=== PATIENT | male | born 1975 | race Caucasian/White ===

== ENCOUNTER 2018-06-16 14:12 | Emergency (ER) | payer BC, OTHER ==
[~2018-06-16] VITALS: Ht 185.4 cm; Wt 156.5 kg
[~2018-06-16 14:12] MED LIST: LANTUS; Z.0.PRAVASTATIN SOD4 PO; Z.0.TRILIPIX135 MG PO; Z.1.METFORMIN HCL100 PO; Z.2.LISINOPRIL-HCT1 PO
[2018-06-16] MEDS ORDERED: SODIUM CHLORIDE 0.9% 1000ML 1,000 ML IV STA (15:04)
[2018-06-16] MEDS ORDERED: ENALAPRILAT IV INJ 1.25 MG/ML VIAL IV STA (15:04)
[2018-06-16] MEDS ORDERED: ONDANSETRON HCL INJ 2 MG/ML VIAL IV ONE (16:00)
[2018-06-16] MEDS ORDERED: FAMOTIDINE 20 MG/2 ML VIAL IV ONE (16:00)
[2018-06-16] MEDS ORDERED: MORPHINE SULFATE INJ 4 MG/ML INJ IV ONE ×2 (16:00→18:00)
--- NOTE | 2018-06-16 19:49 | Diagnostic Imaging Report ---
EXAM: CT Chest WITH contrast (PE Protocol) INDICATION: Right posterior shoulder pain. Chest pain. COMPARISON: None TECHNIQUE: Chest was scanned utilizing a multidetector helical scanner from the lung apex through the level of the diaphragm after administration of IV contrast. Thin section reconstructions were obtained with special concentration on the pulmonary arteries. Coronal and sagittal reformations were obtained. Pulmonary embolism protocol was performed. IV CONTRAST: 100 mL of Isovue 370 COMPLICATIONS: None RADIATION DOSE: Total DLP: 899.18 mGy*cm Estimated effective dose: (DLP x 0.014 x size factor) mSv CTDIvol has been reviewed. It is below the limits set by the Radiation Protocol Committee (RPC). FINDINGS: LINES/ TUBES: None. LUNGS AND AIRWAYS: No filling defect is identified within the pulmonary arteries to the segmental level. Punctate calcified granuloma in the left upper lobe. Subtle lucency in both lower lobes, likely mild air trapping. Mild bronchial wall thickening. PLEURA: The pleural spaces are clear. HEART AND MEDIASTINUM: The thyroid gland is normal. No mediastinal, hilar or axillary lymphadenopathy. The heart is normal in size. There is no pericardial effusion. Main pulmonary artery measures 3.0 cm in diameter and the ascending aorta measures 3.3 cm. UPPER ABDOMEN: Gallbladder is partially visualized and mildly distended measuring at least 8.9 cm in length. Calcified splenic granulomas. 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 BONES: The visualized bony thorax is within normal limits. Previous right scapular fracture deformity. SOFT TISSUES: Unremarkable. IMPRESSION: 1. No pulmonary emboli. 2. Previous right scapular fracture deformity. 3. Mild air trapping the lung bases, likely small airway disease. 4. Mild bronchial wall thickening, likely viral etiology or reactive airway. Signed by: Dr. Arnulfo Juares M.D. on 06/16/2018 7:46 PM
[2018-06-16 20:45] VITALS: BP 158/77
[2018-06-16] MEDS ORDERED: CYCLOBENZAPRINE HCL 10 MG TAB PO ONE (20:45)
== END 2018-06-16 20:50 | disposition home or self-care (01) ==
LOC: FSED 14:12
DX: R07.1 Chest pain on breathing (principal); R06.00 Dyspnea, unspecified; I10 Essential (primary) hypertension; E11.9 Type 2 diabetes mellitus without complications
CPT/HCPCS: 71275; 99284; J2270; J2405; J7030

== ENCOUNTER 2021-11-20 10:57 | Emergency (ER) | payer OTHER ==
[~2021-11-20] VITALS: Ht 185.4 cm; Wt 156.5 kg
== END 2021-11-20 14:20 | disposition home or self-care (01) ==
LOC: ER 11:09
DX: S06.0X0A Concussion without loss of consciousness, initial encounter (principal); W01.0XXA Fall on same level from slipping, tripping and stumbling without subsequent striking against object, initial encounter; Y93.01 Activity, walking, marching and hiking; Y92.002 Bathroom of unspecified non-institutional (private) residence as the place of occurrence of the external cause; I10 Essential (primary) hypertension; E11.9 Type 2 diabetes mellitus without complications; Z98.84 Bariatric surgery status
CPT/HCPCS: 70450; 99282

== ENCOUNTER 2022-08-17 13:40 | Emergency (ER) | payer OTHER ==
[~2022-08-17] VITALS: Ht 185.4 cm; Wt 146.1 kg
[2022-08-17] MEDS ORDERED: CYCLOBENZAPRINE HCL 10 MG TAB PO ONE (14:15)
[2022-08-17] MEDS ORDERED: KETOROLAC TROMETHAMINE 10 MG TAB PO PRN (14:15)
[2022-08-17] MEDS ORDERED: DEXAMETHASONE SOD PHOS 10 MG/1 ML VIAL IM ONE (14:15)
[2022-08-17] MEDS ORDERED: SODIUM CHLORIDE 0.9% 1000ML 1,000 ML IV ONE (15:45)
[2022-08-17] MEDS ORDERED: ACETAMINOPHEN 325 MG TAB PO ONE (15:45)
[2022-08-17] MEDS ORDERED: HYDROCODONE/APAP 5MG-325MG TAB PO ONE (16:00)
[2022-08-17] MEDS ORDERED: KETOROLAC TROME10 MG PEG (16:04)
[2022-08-17] MEDS ORDERED: ULTRAM 50MG50 MG PO (16:04)
[2022-08-17] MEDS ORDERED: METHOCARBAMOL750 MG PO (16:04)
[2022-08-17] MEDS ORDERED: DEXAMETHASONE SOD PHOS 10 MG/1 ML VIAL ONE (16:06)
[2022-08-17 19:22] VITALS: BP 109/84
== END 2022-08-17 16:27 | disposition home or self-care (01) ==
LOC: ER 13:44
DX: M54.12 Radiculopathy, cervical region (principal); S22.42XA Multiple fractures of ribs, left side, initial encounter for closed fracture; W18.2XXA Fall in (into) shower or empty bathtub, initial encounter; Y93.E1 Activity, personal bathing and showering; Y92.002 Bathroom of unspecified non-institutional (private) residence as the place of occurrence of the external cause; G89.29 Other chronic pain; I10 Essential (primary) hypertension; E11.9 Type 2 diabetes mellitus without complications; Z98.84 Bariatric surgery status
CPT/HCPCS: 70450; 71250; 72125; 99284; J1100